=== PATIENT | female | born 1990 ===

== ENCOUNTER 2017-03-30 12:26 | Emergency (ER) | payer OTHER ==
[2017-03-30 13:10] VITALS: BMI 33.2
[2017-03-30 13:11] VITALS: BP 136/90; PULSE 70; RESP 16; TEMP 98.4; O2SAT 100
--- NOTE | 2017-03-30 13:59 | ED PDOC ---
HPI: Skin/Bite Injury Time Seen by Provider: 03/30/17 13:41 Chief Complaint (Nursing): Bite Chief Complaint (Provider): Bite History Per: Patient History/Exam Limitations: no limitations Onset/Duration Of Symptoms: Days (x2) Current Symptoms Are (Timing): Still Present Additional Complaint(s): 26 year old female who presents to the emergency department for an evaluation of right forearm insect bite associated with increasing redness, swelling and itching ongoing since yesterday. Denied any fever, chills, discharge or numbness. Patient stated she is unsure if vaccinations are up-to-date. PMD: none provided Past Medical History Reviewed: Historical Data, Nursing Documentation, Vital Signs Vital Signs: Last Vital Signs Temp 98.4 F 03/30/17 13:10 Pulse 70 03/30/17 13:10 Resp 16 03/30/17 13:10 BP 136/90 03/30/17 13:10 Pulse Ox 100 03/30/17 14:25 - Family History Family History: States: Unknown Family Hx - Home Medications Home Medications: Ambulatory Orders Medication Instructions Recorded Cephalexin [Keflex] 500 mg PO Q6 #28 capsule 03/30/17 Cetirizine HCl [Zyrtec] 10 mg PO DAILY #30 capsule 03/30/17 Hydrocortisone Ivanna 0.2% Cr 1 applic TOP BID #1 tube 03/30/17 [Westcort] - Allergies Allergies/Adverse Reactions: Allergies Allergy/AdvReac Type Severity Reaction Status Date / Time No Known Allergies Allergy Verified 03/30/17 13:08 Review of Systems ROS Statement: Except As Marked, All Systems Reviewed And Found Negative Constitutional: Negative for: Fever, Chills Skin: Positive for: Lesions (right forearm insect bite with redness, swelling and itchiness). Negative for: Other (discharge) Neurological: Negative for: Numbness (right hand) Physical Exam - Reviewed Nursing Documentation Reviewed: Yes Vital Signs Reviewed: Yes - Physical Exam Appears: Positive for: Well, Non-toxic, No Acute Distress Skin: Positive for: Warm (right forearm), Dry. Negative for: Normal Color Pulses-Radial (R): 2+ Extremity: Positive for: Normal ROM (right arm and digits), Tenderness (with erythema and edema to the distal dorsal aspect of right forearm ), Capillary Refill (2+), Other. Negative for: Deformity (right arm) Neurologic/Psych: Positive for: Alert (x3), third loader II-XII (intact), Oriented. Negative for: Motor/Sensory Deficits - ECG O2 Sat by Pulse Oximetry: 100 (RA) Pulse Ox Interpretation: Normal Medical Decision Making Medical Decision Making: Initial Impression: Insect bite Initial Plan: * Adacel 0.5ml IM * Keflex 500mg PO * Motrin 600mg PO Based on history and exam plan will be for outpatient follow-up. Diagnosis insect bite with possible secondary cellulitis discussed with the patient in great detail. Patient instructed that she must follow follow up with primary care physician or the clinic in 1-2 days without fail for re-evaluation. Advised to take medication as prescribed. Return to the emergency room at any time for any new or worsening symptoms. Patient states she fully agrees with and understands discharge instructions. States that she agrees with the plan and disposition. Verbalized and repeated discharge instructions and plan. I have given the patient opportunity to ask any additional questions. Scribe Attestation: Documented by Cindy Grier, acting as a scribe for Luzmaria Castro PA-C. Provider Scribe Attestation: All medical record entries made by the Scribe were at my direction and personally dictated by me. I have reviewed the chart and agree that the record accurately reflects my personal performance of the history, physical exam, medical decision making, and the department course for this patient. I have also personally directed, reviewed, and agree with the discharge instructions and disposition. Disposition - Clinical Impression Clinical Impression: Insect bite - wound - Patient ED Disposition Is Patient to be Admitted: No Counseled Patient/Family Regarding: Diagnosis, Need For Followup, Rx Given - Disposition Referrals: [facility] [Outside] Disposition: Routine/Home Disposition Time: 13:57 Condition: STABLE Additional Instructions: Thank you for letting us take care of you today. You were treated for insect bite to right forearm, consider early cellulitis. The emergency medical care you received today was directed at your acute symptoms. If you were prescribed any medication, please fill it and take as directed. It may take several days for your symptoms to resolve. Return to the Emergency Department if your symptoms worsen, do not improve, or if you have any other problems. Please contact your doctor in 2 days for re-evaluation and follow up / or call one of the physicians/clinics you have been referred to that are listed on the Patient Visit Information form that is included in your discharge packet. Bring any paperwork you were given at discharge with you along with any medications you are taking to your follow up visit. Our treatment cannot replace ongoing medical care by a primary care provider (PCP) outside of the emergency department. Thank you for allowing the [facility] team to be part of your care today. Prescriptions: Cephalexin [Keflex] 500 mg PO Q6 #28 capsule Cetirizine HCl [Zyrtec] 10 mg PO DAILY #30 capsule Hydrocortisone Ivanna 0.2% Cr [Westcort] 1 applic TOP BID #1 tube Instructions: Cellulitis (ED), Insect Bite or Sting (ED) Forms: [employer] ([place]), 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
== END 2017-03-30 14:38 | disposition home or self-care (01) ==
LOC: H.ER 12:26
DX: S50.861A Insect bite (nonvenomous) of right forearm, initial encounter (principal); W57.XXXA Bitten or stung by nonvenomous insect and other nonvenomous arthropods, initial encounter; Y92.89 Other specified places as the place of occurrence of the external cause